=== PATIENT | female | born 1990 | race Caucasian/White ===

== ENCOUNTER 2017-06-01 04:59 | Emergency (ER) | payer BC ==
[2017-06-01 05:06] VITALS: BP 123/73
[2017-06-01] MEDS ORDERED: Sulfamethoxazole/Trimethoprim 800-160 MG Tab PO ONE (06:17)
--- NOTE | 2017-06-01 06:19 | EDM.PDOC ---
ED HPI GENERAL MEDICAL PROBLEM - General Chief Complaint: Abdominal Pain Stated Complaint: POSS KIDNEY STONES Time Seen by Provider: 06/01/17 05:09 Source of Information: Reports: Patient, RN Notes Reviewed History Limitations: Reports: No Limitations - History of Present Illness INITIAL COMMENTS - FREE TEXT/NARRATIVE: The patient states that she developed suprapubic pain, urethral pain, and low back pressure around 03:00 this morning. She has dysuria, urinary frequency, and urinary urgency. She has had nausea, but no vomiting. No recent fever. She states that she has had urinary tract infections, but nothing this severe. She states that she took a single dosage of [id number] Cystex. The patient's PCP is Criselda Wong. Lower Abdominal Pain Score (Numeric/FACES): 10 - Related Data Allergies Allergy/AdvReac Type Severity Reaction Status Date / Time iodine Allergy Rash Verified 06/01/17 05:07 Penicillins Allergy Rash Verified 06/01/17 05:07 Home Meds: Home Meds Sulfamethoxazole/Trimethoprim [Bactrim Ds Tablet] 1 tab PO Q12H #9 tablet [Rx] Past Medical History Endocrine/Metabolic History: Reports: Obesity/BMI 30+ - Past Surgical History HEENT Surgical History: Reports: Laser Surgery (bilateral PRK) GI Surgical History: Reports: Cholecystectomy Female Surgical History: Reports: Breast Biopsy (right, x 2, benign) Social & Family History - Tobacco Use Smoking Status *Q: Never Smoker - Caffeine Use Caffeine Use: Reports: None - Alcohol Use Alcohol Use History: Yes Alcohol Use Frequency: Rarely - Recreational Drug Use Recreational Drug Use: No - Living Situation & Occupation Living situation: Reports: , Alone Occupation: Employed ([employer]) ED ROS GENERAL - Review of Systems Review Of Systems: See Below Constitutional: Reports: No Symptoms HEENT: Reports: No Symptoms Respiratory: Reports: No Symptoms Cardiovascular: Reports: No Symptoms Endocrine: Reports: No Symptoms GI/Abdominal: Reports: No Symptoms : Reports: Other (Bilateral pelvic pain last week) Musculoskeletal: Reports: No Symptoms Skin: Reports: No Symptoms Neurological: Reports: No Symptoms Psychiatric: Reports: No Symptoms Hematologic/Lymphatic: Reports: No Symptoms Immunologic: Reports: No Symptoms ED EXAM, RENAL/ - Physical Exam Exam: See Below Exam Limited By: No Limitations General Appearance: Alert, WD/WN, Mild Distress (Appears uncomfortable) Eye Exam: Bilateral Eye: Normal Inspection Ears: Normal External Exam, Hearing Grossly Normal Nose: Normal Inspection, No Blood Throat/Mouth: Normal Inspection, Normal Lips, Normal Voice, No Airway Compromise Head: Atraumatic, Normocephalic Neck: Normal Inspection, Full Range of Motion Respiratory/Chest: No Respiratory Distress, Lungs Clear, Normal Breath Sounds, No Accessory Muscle Use Cardiovascular: Normal Peripheral Pulses, Regular Rate, Rhythm, No Gallop, No JVD, No Murmur, No Rub GI/Abdominal: Normal Bowel Sounds, Soft, No Organomegaly, No Distention, No Abnormal Bruit, No Mass, Tender (Suprapubic region only. Nontender elsewhere.), Other (Obese) (Female) Exam: Deferred Rectal (Female) Exam: Deferred Back Exam: Normal Inspection, Full Range of Motion. No: CVA Tenderness (L), CVA Tenderness (R) Extremities: Normal Inspection, Normal Range of Motion, No Pedal Edema, Normal Capillary Refill Neurological: Alert, Oriented, Normal Cognition, No Motor/Sensory Deficits Psychiatric: Normal Affect Skin Exam: Warm, Dry, Intact, Normal Color, No Rash Lymphatic: No Adenopathy Course - Vital Signs Last Recorded V/S: Last Vital Signs Temp 36.1 C 06/01/17 05:04 Pulse 62 06/01/17 05:04 Resp 16 06/01/17 05:04 BP 123/73 06/01/17 05:04 Pulse Ox 100 06/01/17 05:04 - Orders/Labs/Meds Orders: Active Orders 24 hr Category Date Time Status CULTURE URINE [RM] Stat Lab 06/01/17 05:25 Received Labs: Laboratory Tests 06/01/17 06/01/17 Range/Units 05:20 05:25 Urine Color Dark yellow (Yellow) Urine Appearance Turbid H (Clear) Urine pH 6.0 (5.0-8.0) Ur Specific [place] > or = 1.030 (1.005-1.030) Urine Protein 3+ H (Negative) Urine Glucose (UA) Negative (Negative) Urine Ketones Trace H (Negative) Urine Occult Blood 3+ H (Negative) Urine Nitrite Negative (Negative) Urine Bilirubin 1+ H (Negative) Urine Urobilinogen 0.2 (0.2-1.0) Ur Leukocyte Esterase 2+ H (Negative) Urine RBC Too numerous to cnt H (0-5) /hpf Urine WBC 40-50 H (0-5) /hpf Ur Epithelial Cells 0-5 (0-5) /hpf Urine Bacteria Few (FEW) /hpf Urine Mucus Not seen (FEW) /hpf Urine HCG, Qual Negative (NEGATIVE) Meds: Medications Discontinued Medications Generic Name Dose Route Start Last Admin Trade Name Hardy PRN Reason Stop Dose Admin Trimethoprim/Sulfamethoxazole 1 tab 06/01/17 06:17 Septra Ds PO 06/01/17 06:18 ONETIME ONE - Re-Assessments/Exams Free Text/Narrative Re-Assessment/Exam: 06/01/17 06:19 The patient's urinalysis is consistent with a UTI. I have ordered a urine culture, and will start the patient on oral Bactrim. Departure - Departure Time of Disposition: 06:27 Disposition: Home, Self-Care 01 Condition: Good Clinical Impression: UTI (urinary tract infection) - Discharge Information Prescriptions: Sulfamethoxazole/Trimethoprim [Bactrim Ds Tablet] 1 tab PO Q12H #9 tablet Referrals: Rach Wong, [facility] [employer] [facility] [Primary Care Provider] - Forms: ED Department Discharge Additional Instructions: You were seen in the emergency room for lower abdominal and urethral pain, along with low back pressure. Workup in the ER included a urinalysis and a urine test. Your urinalysis is consistent with a urinary tract infection. You have been started on the antibiotic Bactrim. Take one tablet every 12 hours , as prescribed. Finish the entire prescription unless told otherwise by your PCP. You may also continue to take [id number] Cystex, however, we recommend you take a total of 6 doses - either 3 doses a day for 2 days, or 2 doses a day for 3 days. Stay adequately hydrated. A sample of your urine was sent for culture. Follow-up with your PCP, Criselda Wong, on Wednesday morning, 06/04/2017, to check on your urine culture results, to make sure that you are on the right antibiotic. If any other problems, please do not hesitate to return to the ER. - My Orders Last 24 Hours: My Active Orders 06/01/17 05:25 CULTURE URINE [RM] Stat - Assessment/Plan Last 24 Hours: My Active Orders 06/01/17 05:25 CULTURE URINE [RM] Stat
== END 2017-06-01 06:45 | disposition home or self-care (01) ==
LOC: JD.ED 04:59
DX: N39.0 Urinary tract infection, site not specified (principal); E66.9 Obesity, unspecified; Z88.0 Allergy status to penicillin; Z90.49 Acquired absence of other specified parts of digestive tract; Z88.8 Allergy status to other drugs, medicaments and biological substances
CPT/HCPCS: 81001; 81025; 87077; 87086; 99284; A9270; 99283

== ENCOUNTER 2022-09-23 12:30 | Emergency (ER) | payer BC ==
[2022-09-23] MEDS ORDERED: Ondansetron 4 MG/2 ML SDV IVPUSH ONE (14:16)
[2022-09-23] MEDS ORDERED: Sodium Chloride 0.9% 10 ML Syringe FLUSH PRN (14:16)
[2022-09-23] MEDS ORDERED: HYDROmorphone 0.5 MG/0.5 ML Syringe IVPUSH ONE (14:17)
[2022-09-23] MEDS ORDERED: Sodium Chloride 0.9% 1,000 ML IV SCH (14:30)
[2022-09-23] MEDS ORDERED: HYDROmorphone 1 MG/ML Syringe IVPUSH ONE (16:18)
[2022-09-23] MEDS ORDERED: Ondansetron 4 MG Tab.DIS PO ONE (19:22)
[2022-09-23] MEDS ORDERED: Ondansetron 4 MG Tab.DIS ONE (19:23)
[2022-09-23 20:32] VITALS: BP 91/59; PULSE 82
== END 2022-09-23 20:38 | disposition home or self-care (01) ==
LOC: JD.ED 12:30 → SUPCPDRO 12:30 → JD.ED 20:38
DX: O99.891 Other specified diseases and conditions complicating pregnancy (principal); R10.9 Unspecified abdominal pain; O99.212 Obesity complicating pregnancy, second trimester; E66.9 Obesity, unspecified; Z88.8 Allergy status to other drugs, medicaments and biological substances; Z88.0 Allergy status to penicillin; Z3A.21 21 weeks gestation of pregnancy
CPT/HCPCS: 36415; 76775; 80053; 83690; 85025; 96361; 96374; 96375; 96376; 99284; A9270; J1170; J2405; J3490; J7030

== ENCOUNTER 2023-01-29 07:11 | Inpatient (IN) | payer BC ==
[2023-01-29] MEDS ORDERED: Acetaminophen 325 MG Tab PO PRN (07:22)
[2023-01-29] MEDS ORDERED: Ondansetron 4 MG/2 ML SDV IVPUSH PRN (07:22)
[2023-01-29] MEDS ORDERED: Calcium Carbonate 500 MG Tab.Chew PO PRN (07:22)
[2023-01-29] MEDS ORDERED: Nalbuphine 10 MG/0.5 ML Syringe IVPUSH PRN (07:22)
[2023-01-29] MEDS ORDERED: Lactated Ringers 1,000 ML IV SCH (07:30)
[2023-01-29] MEDS ORDERED: Oxytocin/Lactated Ringers 10 UNIT/1,000 ML BAG IV SCH ×3 (07:30→12:52)
[2023-01-29] MEDS ORDERED: Lidocaine 1% 50 ML MDV ONE (11:46)
[2023-01-29] MEDS ORDERED: Lidocaine 1% 10 ML MDV INJECT ONE (11:47)
[2023-01-29] MEDS ORDERED: Witch Hazel Medicated Pads 40/Jar TOP PRN (12:52)
[2023-01-29] MEDS ORDERED: Hydrocortisone Acetate 25 MG Supp RECTAL PRN (12:52)
[2023-01-29] MEDS ORDERED: Benzocaine/Menthol 20%-0.5% Spray 78 GM Cannister TOP PRN (12:52)
[2023-01-29] MEDS: Ibuprofen 600 MG Tab PO PRN (17:55)
[2023-01-29] MEDS ORDERED: Magnesium Hydroxide 400 MG/5 ML Susp 30 ML Cup PO PRN (21:00)
[2023-01-30] MEDS: Ibuprofen 600 MG Tab PO PRN ×2 (03:20→09:14)
[2023-01-30] MEDS: Prenatal Multivitamin with Calcium/Folic Acid/Iron Tab PO SCH (09:14)
[2023-01-30] MEDS: Docusate Sodium 100 MG Cap PO PRN (09:14)
[2023-01-30] MEDS: Acetaminophen 325 MG Tab PO PRN (14:47)
[2023-01-31] MEDS: Ibuprofen 600 MG Tab PO PRN ×3 (00:20→16:30)
[2023-01-31] MEDS: Prenatal Multivitamin with Calcium/Folic Acid/Iron Tab PO SCH (08:23)
[2023-01-31] MEDS: Docusate Sodium 100 MG Cap PO PRN (08:24)
[2023-01-31 09:40] VITALS: BP 103/81; PULSE 82
[2023-01-31] MEDS: Acetaminophen 325 MG Tab PO PRN (16:31)
== END 2023-01-31 16:43 | disposition home or self-care (01) | DRG 560 ==
LOC: JD.OB 07:11 → OBSVTOIN 11:32 → JD.OB 11:33
PROVIDERS: ADMIT Obstetrics & Gynecology; ATTEND Obstetrics & Gynecology
PROC: 10E0XZZ Delivery of Products of Conception, External Approach (ICD-10-PCS; principal; 2023-01-29)
PROC: 10907ZC Drainage of Amniotic Fluid, Therapeutic from Products of Conception, Via Natural or Artificial Opening (ICD-10-PCS; 2023-01-29)
PROC: 0KQM0ZZ Repair Perineum Muscle, Open Approach (ICD-10-PCS; 2023-01-29)
PROC: 0UQMXZZ Repair Vulva, External Approach (ICD-10-PCS; 2023-01-29)
PROC: 3E033VJ Introduction of Other Hormone into Peripheral Vein, Percutaneous Approach (ICD-10-PCS; 2023-01-29)
DX: O99.62 Diseases of the digestive system complicating childbirth (principal); K21.9 Gastro-esophageal reflux disease without esophagitis; O70.1 Second degree perineal laceration during delivery; O99.214 Obesity complicating childbirth; O70.0 First degree perineal laceration during delivery; Z37.0 Single live birth; Z3A.39 39 weeks gestation of pregnancy; Z87.891 Personal history of nicotine dependence
CPT/HCPCS: 36415; 59025; 59409; 85025; 86592; 86850; 86900; 86901; A9270-GY; J2001; J2590